=== PATIENT | male | born 1940 | race Caucasian/White ===

== ENCOUNTER 2020-08-20 10:53 | Observation (INO) | payer MEDICARE, OTHER ==
[~2020-08-20] VITALS: Ht 170.2 cm; Wt 98.0 kg
[~2020-08-20 10:53] MED LIST: ASPI-630 PO; ATOR40TA PO; CALC600T60 PO; CLOP75TA PO; FENO150C PO; FERR324T2 PO; FISH12002 PO; FLUT9.9S NS; FOLI1TAB16 PO; LEVO150T5 PO; LOSA50TA86 PO; METH2.5T25 PO; METO50TA29 PO; MOME17SP NS; MULT-245 PO; NITR0.4T24 SL; PANT40TA6 PO; SULF500T7 PO; TAMSULOSIN PO; [UNRECOGNIZED DRUG - CODE] PO; losartan PO; metoprolol er PO; multivitamin PO
--- NOTE | 2020-08-20 11:04 | EKG ---
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
[2020-08-20 11:21] LABS: BASO # 0.1 x10^3/uL (0.0-0.2); BASO % 1 % (0-3); EOS # 0.3 x10^3/uL (0.0-0.7); EOS % 4 % (0-3); HEMATOCRIT 41.7 % (39.0-53.0); HEMOGLOBIN 13.9 g/dL (13.0-17.5); LYMPH # 1.5 x10^3/uL (1.0-4.8); LYMPH % 21 % (24-48); MEAN CORPUSCULAR HEMOGLOBIN 33 pg (25-35); MEAN CORPUSCULAR HGB CONC 33 g/dL (31-37); MEAN CORPUSCULAR VOLUME 100 fL (79-100); MONO # 0.5 x10^3/uL (0.0-1.1); MONO % 7 % (0-9); NEUT # 4.7 x10^3uL (1.8-7.7); NEUT % 68 % (31-73); PLATELET COUNT 296 x10^3/uL (140-400); RED BLOOD COUNT 4.19 x10^6/uL (4.30-5.70); RED CELL DISTRIBUTION WIDTH 14.9 % (11.5-14.5)
[2020-08-20 11:31] LABS: CALCIUM 9.5 mg/dL (8.5-10.1); CREATININE 1.2 mg/dL (0.7-1.3); GFR 58.4
[2020-08-20 11:37] LABS: POTASSIUM 4.4 mmol/L (3.5-5.1)
[2020-08-20 11:43] LABS: ALBUMIN 3.4 g/dL (3.4-5.0); ALBUMIN/GLOBULIN RATIO 0.9 (1.0-1.7); MAGNESIUM 1.9 mg/dL (1.8-2.4); TOTAL BILIRUBIN 0.2 mg/dL (0.2-1.0)
--- NOTE | 2020-08-20 11:45 | RAD ---
EXAM: Chest, single view. HISTORY: Chest pain. COMPARISON: 06/04/2015. FINDINGS: A frontal view of the chest is obtained. There is bilateral lower lobe atelectasis. There i s no infiltrate, pleural effusion or pneumothorax. The heart is normal in size for portable technique . There are calcified granulomas. IMPRESSION: No acute pulmonary finding. Electronically signed by: Frances Hodge MD (08/20/2020 11:42 AM) [id number]
--- NOTE | 2020-08-20 12:11 | PHYS DOC ---
Past History Past Medical History: Arthritis, GERD, High Cholesterol, Hypertension, [place], Seizure, Other Past Surgical History: Cholecystectomy, Other Additional Past Surgical Histo: [place] stent. Smoking: Non-smoker, Quit Greater Than 1 Year Alcohol Use: None Drug Use: None General Adult EDM: Chief Complaint: CHEST PAIN HPI: HPI: Patient is a 79-year-old male who presented to ER due to chest pain started this morning. Patient also complains of heart palpitation. Patient rashid has had heart palpitation for several weeks, patient was seen by his fern gatherer yesterday at [facility], he is wearing a [employer] Holter monitor. Patient is fully vaccinated for COVID-19. Patient denies any cough or fever. Patient denies any trouble breathing. Review of Systems: Review of Systems: Constitutional: Denies fever or chills Eyes: Denies change in visual acuity HENT: Denies nasal congestion or sore throat Respiratory: Denies cough or shortness of breath Cardiovascular: Positive for chest pain, no edema, positive for heart palpitation GI: Denies abdominal pain, nausea, vomiting, bloody stools or diarrhea : Denies dysuria Musculoskeletal: Denies back pain or joint pain Integument: Denies rash Neurologic: Denies headache, focal weakness or sensory changes Endocrine: Denies polyuria or polydipsia Lymphatic: Denies swollen glands Psychiatric: Denies depression or anxiety Allergies: Allergies: Allergies Coded Allergies Type Severity Reaction Last Updated Verified terazosin HCl Allergy Unknown 10/10/14 Yes Physical Exam: PE: Constitutional: Well developed, well nourished, no acute distress, non-toxic appearance. [] HENT: Normocephalic, atraumatic, bilateral external ears normal, oropharynx moist, no oral exudates, nose normal. [] Eyes: PERRLA, EOMI, conjunctiva normal, no discharge. [] Neck: Normal range of motion, no tenderness, supple, no stridor. [] Cardiovascular:Heart rate regular rhythm, with loud systolic heart murmur Lungs & Thorax: Bilateral breath sounds clear to auscultation [] Abdomen: Bowel sounds normal, soft, no tenderness, no masses, no pulsatile masses. [] Skin: Warm, dry, no erythema, no rash. [] Back: No tenderness, no CVA tenderness. [] Extremities: No tenderness, no cyanosis, no clubbing, ROM intact, no edema. [] Neurologic: Alert and oriented X 3, normal motor function, normal sensory function, no focal deficits noted. [] Psychologic: Affect normal, judgement normal, mood normal. [] Current Patient Data: Labs: Laboratory Tests Test 08/20/20 11:05 White Blood Count 7.0 x10^3/uL (4.0-11.0) Red Blood Count 4.19 x10^6/uL (4.30-5.70) L Hemoglobin 13.9 g/dL (13.0-17.5) Hematocrit 41.7 % (39.0-53.0) Mean Corpuscular Volume 100 fL (79-100) Mean Corpuscular Hemoglobin 33 pg (25-35) Mean Corpuscular Hemoglobin Concent 33 g/dL (31-37) Red Cell Distribution Width 14.9 % (11.5-14.5) H Platelet Count 296 x10^3/uL (140-400) Neutrophils (%) (Auto) 68 % (31-73) Lymphocytes (%) (Auto) 21 % (24-48) L Monocytes (%) (Auto) 7 % (0-9) Eosinophils (%) (Auto) 4 % (0-3) H Basophils (%) (Auto) 1 % (0-3) Neutrophils # (Auto) 4.7 x10^3uL (1.8-7.7) Lymphocytes # (Auto) 1.5 x10^3/uL (1.0-4.8) Monocytes # (Auto) 0.5 x10^3/uL (0.0-1.1) Eosinophils # (Auto) 0.3 x10^3/uL (0.0-0.7) Basophils # (Auto) 0.1 x10^3/uL (0.0-0.2) Sodium Level 144 mmol/L (136-145) Potassium Level 4.4 mmol/L (3.5-5.1) Chloride Level 109 mmol/L (98-107) H Carbon Dioxide Level 26 mmol/L (21-32) Anion Gap 9 (6-14) Blood Urea Nitrogen 19 mg/dL (8-26) Creatinine 1.2 mg/dL (0.7-1.3) Estimated GFR (Cockcroft-Gault) 58.4 BUN/Creatinine Ratio 16 (6-20) Glucose Level 141 mg/dL (70-99) H Calcium Level 9.5 mg/dL (8.5-10.1) Magnesium Level 1.9 mg/dL (1.8-2.4) Total Bilirubin 0.2 mg/dL (0.2-1.0) Aspartate Amino Transferase (AST) 29 U/L (15-37) Alanine Aminotransferase (ALT) 30 U/L (16-63) Alkaline Phosphatase 79 U/L (46-116) Troponin I Quantitative < 0.017 ng/mL (0-0.055) XD-Erz-M-Type Natriuretic Peptide 1828 pg/mL (0-449) H Total Protein 7.0 g/dL (6.4-8.2) Albumin 3.4 g/dL (3.4-5.0) Albumin/Globulin Ratio 0.9 (1.0-1.7) L Lipase 217 U/L (73-393) Vital Signs: Vital Signs Date Time Temp Pulse Resp B/P (MAP) Pulse Ox O2 Delivery O2 Flow Rate FiO2 08/20/20 11:52 97.6 94 152/63 (92) 97 Room Air 08/20/20 10:59 16 EKG: EKG: EKG was done at 1102, heart rate 99 beats per minutes, multiple PVCs,, irregular rhythm , no ST segment elevation Radiology/Procedures: Radiology/Procedures: [][place] [address] IMAGING REPORT Signed PATIENT: NAVEEN RICH ACCOUNT: [id number] : 1940 LOCATION: ER AGE: 79 SEX: M EXAM STATUS: REG ER ORD. PHYSICIAN: LEV DAVIS DO REASON: CHEST PAIN PROCEDURE: PORTABLE CHEST 1V EXAM: Chest, single view. HISTORY: Chest pain. COMPARISON: 06/04/2015. FINDINGS: A frontal view of the chest is obtained. There is bilateral lower lobe atelectasis. There is no infiltrate, pleural effusion or pneumothorax. The heart is normal in size for portable technique. There are calcified granulomas. IMPRESSION: No acute pulmonary finding. Electronically signed by: Frances Hernandez MD (08/20/2020 11:42 AM) [id number] DICTATED AND SIGNED BY: FRANCES HERNANDEZ MD DATE: 08/20/20 1142 CC: LEV DAVIS DO; LATRICIA HERNANDEZ ~MTH0 0 Heart Score: C/O Chest Pain: Yes HEART Score for Chest Pain: HEART Score for Chest Pain Response (Comments) Value History Moderately Suspicious 1 ECG Nonspecific Repolarizatio 1 Age > 65 2 Risk Factors >3 Risk Factors or Hx CAD 2 Troponin < Normal Limit 0 Total 6 Risk Factors: Risk Factors: DM, Current or recent (<one month) smoker, HTN, HLP, family history of CAD, obesity. Risk Scores: Score 0 - 3: 2.5% MACE over next 6 weeks - Discharge Home Score 4 - 6: 20.3% MACE over next 6 weeks - Admit for Clinical Observation Score 7 - 10: 72.7% MACE over next 6 weeks - Early Invasive Strategies Course & Med Decision Making: Course & Med Decision Making Pertinent Labs and Imaging studies reviewed. (See chart for details) Patient is a 79-year-old male who presented to ER due to chest pain and heart palpitation, cardiac enzyme came back normal so far. Patient will be admitted to hospital for further evaluation and treatment. Discussed with Dr. Bhatia the hospitalist on-call who agreed to admit the patient to telemetry. Yoshi Disclaimer: Yoshi Disclaimer: This electronic medical record was generated, in whole or in part, using a voice recognition dictation system. Departure Departure: Impression: Primary Impression: Chest pain Disposition: ADMITTED INPATIENT (Dr. Bhatia) Condition: STABLE Referrals: LATRICIA HERNANDEZ (PCP) LEV DAVIS DO August 20, 2020 12:11
[2020-08-20 13:55] VITALS: BP 107/77
[2020-08-20 15:15] VITALS: BP 152/86
--- NOTE | 2020-08-20 15:55 | NUR ---
ADMISSION Pt is a 79M admitted with chest pressure/tightness since 08/20/20 at 8am. Pt states chest tightness has subsided and rates it a 0/10. Initial troponin is negative in the ER. 3hr and 6hr troponin ordered. Admission completed and Dr. Bhatia at bedside assessing pt. Awaiting orders. Will continue to monitor. MESSI RN
[2020-08-20] MEDS ORDERED: POLY17PO5 PO (16:06)
[2020-08-20] MEDS ORDERED: FEXO180T16 PO (16:07)
[2020-08-20] MEDS ORDERED: ISOS30TA68 PO (16:07)
[2020-08-20] MEDS ORDERED: CYCL1DRO EACHEYE (16:07)
[2020-08-20] MEDS ORDERED: METOPROLOL TARTRATE 5 MG/5 ML VIAL. IV ONE (16:15)
--- NOTE | 2020-08-20 17:20 | HP ---
ADMIT DATE: 08/20/2020 HISTORY OF PRESENT ILLNESS: The patient is a 79-year-old male patient, who presented to the Emergency Room with chest tightness. According to him, the patient was sitting watching TV this morning when he developed chest tightness and palpitation. Apparently, he has had these palpitations for several weeks. He was seen by his tribal delegate yesterday at [facility] and he is wearing a [employer] Holter monitor. The patient is fully vaccinated for COVID-19. He denied any nausea or vomiting. Denied any diaphoresis. Denied any radiation to his left shoulder, left arm. He describes his symptoms just tightness, rated about 3/10 in severity that lasted for 2 hours according to him and he denied any cough, phlegm or hemoptysis. He was evaluated in the Emergency Room, has had an EKG which showed that he was in regular rhythm with multiple PVCs, but no ST segment elevation. His chest x-ray was unremarkable and has had lab work. His first set of cardiac enzyme was less than 0.017. His electrolytes including his potassium and magnesium were all within normal range. He was admitted for further evaluation and treatment. PAST MEDICAL HISTORY: Significant for coronary artery disease status post myocardial infarction with stent deployment in 2011, hypertension, hyperlipidemia, hypothyroidism, morbid obesity, obstructive sleep apnea, an episode of TIA and left carotid artery stenosis, benign prostatic hypertrophy and rheumatoid arthritis. PAST SURGICAL HISTORY: Significant for PCI and stent deployment x2. He has left carotid artery endarterectomy, deviated septum repair, cholecystectomy, perforated eardrum, bilateral cataract extraction and cervical decompressive laminectomy. ALLERGIES: HE IS ALLERGIC TO HYTRIN AND TERAZOSIN. MEDICATIONS: He is currently on following medication. He is on methotrexate sodium 2.5 mg once a week for rheumatoid arthritis. He is on Plavix 75 mg once a day, fenofibrate 150 mg daily, atorvastatin 40 mg at bedtime, metoprolol succinate 50 mg once a day, losartan potassium 50 mg daily, aspirin 81 mg once a day, phenytoin sodium 400 mg at bedtime. He is on calcium carbonate 600 mg twice a day, Flonase 2 sprays to each nostril twice a day, Protonix 40 mg once a day, levothyroxine 50 mcg once a day, folic acid 1 mg once a day, multivitamin 1 tablet once a day, fish oil or omega 3 fatty acid 1200 mg twice a day, tamsulosin 0.4 mg at bedtime. FAMILY HISTORY: He has 2 brothers, one older of lung cancer and one older still alive and has had myocardial infarction. Mother at age of 86 because of congestive heart failure. Father at age of 85 of multiple cerebrovascular accidents. SOCIAL HISTORY: He is , has one adopted daughter. He quit smoking in 1984. Does not drink alcohol or use any recreational drugs. 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 REVIEW OF SYSTEMS: The patient has bilateral cataract extraction, but denied any glaucoma or macular degeneration. Denied any earache, tinnitus or sensorineural deafness. Denied any nosebleed, stuffy nose or postnasal drip. Denied any sore throat, sore tongue, toothache, hoarseness of voice or difficulty swallowing. Denied any nausea, vomiting, diarrhea or constipation. Denied any hematemesis, melena or hematochezia. Denied any dysuria, frequency or hematuria. Did complain of nocturia. Had chest tightness and palpitation, but denied any shortness of breath. Denied any orthopnea or paroxysmal nocturnal dyspnea. Denied any cough, phlegm or hemoptysis. Denied any dizziness, lightheadedness or vertigo. PHYSICAL EXAMINATION: GENERAL: On arrival to the Emergency Room, he looked well and was clearly in no apparent respiratory distress. No pallor, jaundice, cyanosis or thyromegaly. No jugular venous distention, no lower limb edema. VITAL SIGNS: His heart rate was 94, blood pressure was 142/73, temperature was 97.6, respiratory rate was 16 and oxygen saturation was 97%. HEAD, EYES, EARS, NOSE AND THROAT: Normocephalic, atraumatic. NECK: Supple. HEART: Showed normal first and second sounds. No gallop or murmur. CHEST: Clear to auscultation, no crepitation or rhonchi. ABDOMEN: Distended, soft, nontender. No guarding or rigidity. No organomegaly. All hernial orifice intact. Bowel sounds normal. NEUROLOGIC: He was awake, alert, responding appropriately. All cranial nerves intact. He moves extremities without difficulty. EXTREMITIES: Showed no clubbing, cyanosis or edema; however, he has multiple rheumatoid nodules on the knuckles of his fingers and both elbows that apparently are not tophaceous gout according to him. LABORATORY WORK: On arrival showed a white cell count of 7000, hemoglobin 14, hematocrit 42, MCV 100 and platelet count 296,000 with normal manual differential. His chemistry showed a serum sodium 144, potassium 4.4, chloride 109, bicarbonate 26, anion gap of 9, BUN 19, creatinine 1.2. Estimated GFR was 58 mL per minute. Glucose 141, calcium was 9.5, magnesium was 1.9. Total bilirubin, AST, ALT, alkaline phosphatase were normal. First set of cardiac enzymes showed troponin to be less than 0.017, B-natriuretic peptide was 1828. Total protein 7, albumin 3.4 and lipase was 217. His chest x-ray showed there is bilateral lower lobe atelectasis. There is no infiltrate, pleural effusion or pneumothorax. The heart is normal in size technique. There are calcified granulomas. ASSESSMENT AND PLAN: The patient was admitted in telemetry bed. We will do 2 more sets of cardiac enzyme. We will check his fasting lipid profile. We will consult our tribal delegate. He apparently has Holter monitor that was placed yesterday and I do not know whether this is something that we can analyze here or not. SELENE/DEVYN DR: Conchita TID: [id number]
[2020-08-20 18:29] VITALS: BP 140/70
[2020-08-20] MEDS ORDERED: TAMSULOSIN 0.4 MG CAP.ER.24H. PO SCH (20:30)
[2020-08-20] MEDS ORDERED: ATORVASTATIN CALCIUM 20 MG TABLET PO SCH (20:30)
[2020-08-20] MEDS ORDERED: PHENYTOIN SODIUM EXTENDED 100 MG CAPSULE PO SCH (20:30)
--- NOTE | 2020-08-20 21:35 | NUR ---
Discharge Note: NAVEEN RICH1 [facility] Discharge instructions and discharge home medications reviewed with Other facility and a copy given. All questions have been answered and understanding verbalized. The following instructions and handouts were given: MED REC AND DC PACKET Discontinued lines and drains: Peripheral IV intact. Patient discharged to [facility] with Ambulance Personnel via Stretcher. REPORT CALLED TO KIYA MATIAS ALL QUESTIONS ANSWERED BELONGINGS SENT W/ PATIENT.
== END 2020-08-20 21:38 | disposition short-term general hospital (02) ==
LOC: ER 10:53 → 1 SOUTH 12:49 → INTOOBSV 12:49 → ER 13:36
PROVIDERS: ADMIT Internal Medicine; ATTEND Internal Medicine
DX: I25.10 Atherosclerotic heart disease of native coronary artery without angina pectoris (principal); I10 Essential (primary) hypertension; I25.2 Old myocardial infarction; I49.3 Ventricular premature depolarization; M06.9 Rheumatoid arthritis, unspecified; N40.0 Benign prostatic hyperplasia without lower urinary tract symptoms; E03.9 Hypothyroidism, unspecified; E78.00 Pure hypercholesterolemia, unspecified; M19.90 Unspecified osteoarthritis, unspecified site; K21.9 Gastro-esophageal reflux disease without esophagitis; R56.9 Unspecified convulsions; E78.5 Hyperlipidemia, unspecified; Z86.73 Personal history of transient ischemic attack (TIA), and cerebral infarction without residual deficits; Z87.891 Personal history of nicotine dependence; Z95.5 Presence of coronary angioplasty implant and graft; Z98.41 Cataract extraction status, right eye; Z98.42 Cataract extraction status, left eye; Z90.49 Acquired absence of other specified parts of digestive tract
CPT/HCPCS: 36415; 71045; 80053; 83690; 83735; 83880; 84484; 85025; 93005; 96374; 99285; G0378; J3490; G0379